=== PATIENT | female | born 1960 | race Caucasian/White ===

== ENCOUNTER → 2025-01-17 08:22 | Outpatient (REF) | payer OTHER, SELFPAY | LOC: HWWDC 08:22 | PROVIDERS: ATTENDING PHYSICIAN Internal Medicine | DX: Z12.31 Encounter for screening mammogram for malignant neoplasm of breast (principal); Z78.0 Asymptomatic menopausal state; Z13.820 Encounter for screening for osteoporosis | CPT/HCPCS: 77063; 77067; 77080 ==

== ENCOUNTER → 2025-01-27 08:35 | Outpatient (REF) | payer OTHER, SELFPAY | LOC: WDC 08:35 | PROVIDERS: ATTENDING PHYSICIAN Internal Medicine | DX: R92.8 Other abnormal and inconclusive findings on diagnostic imaging of breast (principal) | CPT/HCPCS: 76642 ==

== ENCOUNTER → 2025-03-02 08:56 | Outpatient (REF) | payer OTHER, SELFPAY | LOC: HWRAD 08:56 | PROVIDERS: ATTENDING PHYSICIAN Internal Medicine | DX: R20.2 Paresthesia of skin (principal); R20.0 Anesthesia of skin | CPT/HCPCS: 72050 ==